=== PATIENT | male | born 1960 | race Caucasian/White ===

== ENCOUNTER 2022-08-10 11:44 | Emergency (ER) | payer SELFPAY ==
[~2022-08-10] VITALS: Ht 167.6 cm; Wt 70.8 kg
[2022-08-10] MEDS ORDERED: VIAGRA100 MG PO (12:23)
== END 2022-08-10 13:15 | disposition left against medical advice (07) ==
LOC: ED 11:44
DX: S00.12XA Contusion of left eyelid and periocular area, initial encounter (principal); S80.812A Abrasion, left lower leg, initial encounter; S80.811A Abrasion, right lower leg, initial encounter; E78.5 Hyperlipidemia, unspecified; I10 Essential (primary) hypertension; C61 Malignant neoplasm of prostate; Z53.29 Procedure and treatment not carried out because of patient's decision for other reasons; Y09 Assault by unspecified means; Y92.149 Unspecified place in prison as the place of occurrence of the external cause
CPT/HCPCS: 99284